=== PATIENT | female | born 1945 | race Asian ===

== ENCOUNTER → 2017-09-10 | Outpatient (CLI) | payer MEDICARE, OTHER | END | disposition home or self-care (01) | LOC: RADPV 12:39 | PROVIDERS: ATTEND Family Medicine | DX: R05 Cough (principal); M47.814 Spondylosis without myelopathy or radiculopathy, thoracic region | CPT/HCPCS: 71020 ==

== ENCOUNTER → 2019-01-19 | Outpatient (CLI) | payer MEDICARE, OTHER | END | disposition home or self-care (01) | LOC: RADPV 13:11 | PROVIDERS: ATTEND Family Medicine | DX: R05 Cough (principal); I70.0 Atherosclerosis of aorta ==

== ENCOUNTER → 2019-02-09 | Outpatient (CLI) | payer MEDICARE, OTHER | END | disposition home or self-care (01) | LOC: RADPV 08:57 | PROVIDERS: ATTEND Family Medicine | DX: M50.321 Other cervical disc degeneration at C4-C5 level (principal); M46.02 Spinal enthesopathy, cervical region | CPT/HCPCS: 72040 ==

== ENCOUNTER → 2019-04-13 | Outpatient (CLI) | payer MEDICARE, OTHER | END | disposition home or self-care (01) | LOC: RADPV 08:25 | PROVIDERS: ATTEND Family Medicine | DX: M51.37 Other intervertebral disc degeneration, lumbosacral region (principal); M16.0 Bilateral primary osteoarthritis of hip; M25.561 Pain in right knee; M25.562 Pain in left knee | CPT/HCPCS: 72100; 73521 ==

== ENCOUNTER → 2021-10-13 | Outpatient (CLI) | payer MEDICARE, OTHER | END | disposition home or self-care (01) | LOC: RADPV 08:17 | PROVIDERS: ATTEND Family Medicine | DX: I70.0 Atherosclerosis of aorta (principal); D25.9 Leiomyoma of uterus, unspecified; M25.78 Osteophyte, vertebrae | CPT/HCPCS: 71111; 72040; 72070; 72100; 73000-TC ==

== ENCOUNTER 2024-09-23 10:14 | Emergency (ER) | payer MEDICARE, OTHER ==
[~2024-09-23] VITALS: Ht 152.4 cm; Wt 50.0 kg
[2024-09-23 10:15] VITALS: TEMP 98.2
[2024-09-23 15:19] VITALS: BP 112/77; PULSE 78; RESP 18; O2SAT 100
== END 2024-09-23 15:20 | disposition home or self-care (01) ==
LOC: EMS 10:14
DX: S00.83XA Contusion of other part of head, initial encounter (principal); Z79.01 Long term (current) use of anticoagulants; W01.0XXA Fall on same level from slipping, tripping and stumbling without subsequent striking against object, initial encounter; Y93.89 Activity, other specified; Y92.89 Other specified places as the place of occurrence of the external cause; Y99.8 Other external cause status
CPT/HCPCS: 70450; 70486; 72125; 99284